=== PATIENT | male | born 1950 ===

== ENCOUNTER 2020-03-14 16:21 | Outpatient (REF) | payer MEDICARE, OTHER, SELFPAY ==
[2020-03-15 14:58] LABS: COVID-19 RT-PCR Result NEGATIVE (Negative)
== END 2020-03-14 16:41 ==
LOC: NCHCN 16:21
PROVIDERS: Visit Provider Nurse Practitioner Family
DX: Z20.828 Contact with and (suspected) exposure to other viral communicable diseases (principal)
CPT/HCPCS: U0003

== ENCOUNTER 2020-07-26 08:49 | Outpatient (REF) | payer MEDICARE, OTHER, SELFPAY ==
[2020-07-26 20:59] LABS: HCT 42.5 % (40.0-50.0); HGB 14.3 g/dL (13.5-17.5); MCH 33.6 pg (27.0-33.0); MCHC 33.6 % (32.0-36.0); MCV 99.8 fL (80-95); Platelet Count 166 10^3/uL (130-400); RBC 4.26 10^6/uL (4.36-5.78); RDW 13.1 % (11.8-14.1); RDW-SD 48.3 fL; WBC 5.27 10^3/uL (4.4-10.8)
[2020-07-26 21:20] LABS: ALT 39 U/L (16-63); AST 31 U/L (15-37); Alkaline Phosphatase 62 U/L (46-116); Anion Gap 4.5 mmol/L (3-11); BUN 15 mg/dL (7-18); Bilirubin, Total 0.9 mg/dL (0.2-1.0); CO2 31.5 mmol/L (21.0-32.0); CREATININE 0.96 mg/dL (0.70-1.30); Calcium 9.2 mg/dL (8.5-10.1); Calculated LDL 79 mg/dL (<100); Chloride 104 mmol/L (98-107); Cholesterol 166 mg/dL (<200); Glucose 93 mg/dL (74-106); HDL Cholesterol 66 mg/dL (40-60); Potassium 4.3 mmol/L (3.5-5.1); Sodium 140 mmol/L (136-145); TSH 3.04 uIU/mL (0.36-3.74); Triglyceride 106 mg/dL (<150)
[2020-07-26 22:28] LABS: FREE T4 0.97 ng/dL (0.76-1.46)
[2020-07-27 22:00] LABS: PSA, Screening 0.5 ng/mL (0.0-6.5)
== END 2020-07-26 09:09 ==
LOC: NCHCN 08:49
PROVIDERS: Visit Provider Nurse Practitioner Family
DX: E03.9 Hypothyroidism, unspecified (principal); E78.5 Hyperlipidemia, unspecified; I82.90 Acute embolism and thrombosis of unspecified vein; Z12.5 Encounter for screening for malignant neoplasm of prostate; Z80.42 Family history of malignant neoplasm of prostate
CPT/HCPCS: 80053; 80061; 84153; 85027; 84439; 84443

== ENCOUNTER 2020-10-02 14:32 | Emergency (ER) | payer MEDICARE, OTHER, SELFPAY ==
[2020-10-02] VITALS (22 sets, daily range): BP systolic 114–145; BP diastolic 63–88; PULSE 66–89; RESP 8–26; TEMP 36.6; O2SAT 89–97
--- NOTE | 2020-10-02 14:30 | RT.EKG_ITS ---
APPROVED REPORT Exam: Resting ECG Patient Location: E HR:78 bpm ECG Measurements Heart Rate 78 AXIS AK 164 P 52 QRSd 109 QRS -21 QT 383 T -14 QTc 436 Conclusion Sinus rhythm...normal P axis, V-rate 60- 99 Low voltage, precordial leads...precordial leads <1.0mV I have reviewed and interpreted ECG and agree with software generated interpretation.
--- NOTE | 2020-10-02 14:34 | ED.GENADUL_ITS ---
Discharge Plan Disposition Patient Disposition: HOME Condition: Good Discharge Details Clinical Impression: Mild shortness of breath, Hypoxia Primary Care Provider: Oralia Beaulieu ED Provider: Ellie West Home Meds and New Rx's Prescriptions: Continued Eliquis 5 mg Tablet 5 mg PO BID RF: 0 levothyroxine 50 mcg Tablet 50 mcg PO DAILY RF: 0 atorvastatin 10 mg Tablet 10 mg PO DAILY RF: 0 aspirin 81 mg Tablet 81 mg PO DAILY RF: 0 Discharge Instructions Instructions: Dyspnea (ED) Additional Instructions: Drink plenty of fluids and get plenty of rest. Call your primary care doctor tomorrow to schedule a follow-up appointment for reevaluation and for referral for outpatient stress test, outpatient echocardiogram and/or outpatient pulmonary function testing if your symptoms persist or worsen. Return immediately to the emergency department if you develop any worsening or new concerning symptoms. Discharge Data Discharge Date/Time-TO BE ENTERED AT DEPARTURE: 10/02/20 18:00 Discharge Physician: Ellie West Medical Decision Making 70-year-old male with a history of hyperlipidemia, hypothyroidism and pulmonary embolism on lifelong Eliquis who presents for shortness of breath for the past week and concern for possible PE versus CHF at the urgent care and referred here for further evaluation. Oxygen saturation 93 to 94% on room air on arrival. Remainder vitals within normal limits. He has no acute complaints at this time. He states that ambulation actually improved the shortness of breath. EKG notes a rate of 78, sinus without acute ST-T wave ischemic changes. His lungs are clear bilaterally. Labs and imaging reviewed and unremarkable. Troponin negative. BNP negative. CT negative. Patient was ambulated and his oxygen saturation was 96% on room air and he had no acute complaints. He had a Covid swab obtained at urgent care today. Patient is requesting to go home. Advised to follow up with the primary care claudia mcintyre for re-evaluation. Usual and customary return precautions given prior to discharge. Medical Records Medical records reviewed: Yes I reviewed the patient's medical records. Imaging Data Radiologic Study: Radiologist's impression: CT Angiography Chest With Contrast Exam date and time: 10/02/2020 4:01 PM Age: 70 years old Clinical indication: Other: Shortness of breath, hypoxia, R/O pe; Patient HX: HX of pe in 2018 TECHNIQUE: Imaging protocol: Computed tomographic angiography of the chest with intravenous contrast. 3D rendering (Not supervised by radiologist): MIP and/or 3D reconstructed images were created by the technologist. Contrast material: OMNIPAQUE 350; Contrast volume: 100 ml; Contrast route: INTRAVENOUS (IV); COMPARISON: No relevant prior studies available. FINDINGS: Pulmonary arteries: Normal. No pulmonary emboli. Aorta: Unremarkable. No aortic aneurysm. No aortic dissection. Lungs: Unremarkable. No consolidation. No masses. Pleural space: Unremarkable. No pneumothorax. No pleural effusion. Heart: Unremarkable. No cardiomegaly. No pericardial effusion. Lymph nodes: Unremarkable. No enlarged lymph nodes. Bones/joints: Unremarkable. No acute fracture. Soft tissues: Unremarkable. IMPRESSION: No acute findings. Lab Data Lab results reviewed: Yes I reviewed the patient's lab results. Labs: Laboratory Tests Range/Units 10/02/20 10/02/20 10/02/20 15:00 15:00 15:00 WBC (4.4-10.8) 10^3/uL 7.97 RBC (4.36-5.78) 10^6/uL 4.39 Hgb (13.5-17.5) g/dL 14.8 Hct (40.0-50.0) % 43.0 MCV (80-95) fL 97.9 H MCH (27.0-33.0) pg 33.7 H MCHC (32.0-36.0) % 34.4 RDW (11.8-14.1) % 12.6 Plt Count (130-400) 10^3/uL 164 MPV (8.0-11.0) fL 10.2 Immature Gran % 0.1 Neutrophils % 44.1 Lymphocytes % 41.5 Monocytes % 7.9 Eosinophils % 5.8 Basophils % 0.6 Nucleated RBC % % 0 Absolute Neutrophils (1.2-6.7) 10^3/uL 3.51 Absolute Lymphocytes (1.2-3.4) 10^3/uL 3.31 Absolute Monocytes (0.1-0.8) 10^3/uL 0.63 Absolute Eosinophils (0.0-0.7) 10^3/uL 0.46 Absolute Basophils (0.0-0.2) 10^3/uL 0.05 PT (9.3-11.0) sec 10.2 INR (0.9-1.1) 1.0 APTT (21.0-27.5) sec 25.4 Sodium (136-145) mmol/L 138 Potassium (3.5-5.1) mmol/L 3.8 Chloride (98-107) mmol/L 104 Carbon Dioxide (21.0-32.0) mmol/L 26.6 Anion Gap (3-11) mmol/L 7.4 BUN (7-18) mg/dL 14 Creatinine (0.70-1.30) mg/dL 0.97 Estimated GFR/1.73 m2 (mL/min/1.73m2) >= 60.00 Glucose (74-106) mg/dL 112 H Calcium (8.5-10.1) mg/dL 9.1 Magnesium (1.8-2.4) mg/dL 2.3 Total Bilirubin (0.2-1.0) mg/dL 0.6 AST (15-37) U/L 32 ALT (16-63) U/L 45 Alkaline Phosphatase (46-116) U/L 71 Troponin I (<0.06) ng/mL < 0.05 NT-Pro-B Natriuret Pep (<300) pg/mL Total Protein (6.4-8.2) g/dL 7.4 Albumin (3.4-5.0) g/dL 4.0 Range/Units 10/02/20 15:00 WBC (4.4-10.8) 10^3/uL RBC (4.36-5.78) 10^6/uL Hgb (13.5-17.5) g/dL Hct (40.0-50.0) % MCV (80-95) fL MCH (27.0-33.0) pg MCHC (32.0-36.0) % RDW (11.8-14.1) % Plt Count (130-400) 10^3/uL MPV (8.0-11.0) fL Immature Gran % Neutrophils % Lymphocytes % Monocytes % Eosinophils % Basophils % Nucleated RBC % % Absolute Neutrophils (1.2-6.7) 10^3/uL Absolute Lymphocytes (1.2-3.4) 10^3/uL Absolute Monocytes (0.1-0.8) 10^3/uL Absolute Eosinophils (0.0-0.7) 10^3/uL Absolute Basophils (0.0-0.2) 10^3/uL PT (9.3-11.0) sec INR (0.9-1.1) APTT (21.0-27.5) sec Sodium (136-145) mmol/L Potassium (3.5-5.1) mmol/L Chloride (98-107) mmol/L Carbon Dioxide (21.0-32.0) mmol/L Anion Gap (3-11) mmol/L BUN (7-18) mg/dL Creatinine (0.70-1.30) mg/dL Estimated GFR/1.73 m2 (mL/min/1.73m2) Glucose (74-106) mg/dL Calcium (8.5-10.1) mg/dL Magnesium (1.8-2.4) mg/dL Total Bilirubin (0.2-1.0) mg/dL AST (15-37) U/L ALT (16-63) U/L Alkaline Phosphatase (46-116) U/L Troponin I (<0.06) ng/mL NT-Pro-B Natriuret Pep (<300) pg/mL 72 Total Protein (6.4-8.2) g/dL Albumin (3.4-5.0) g/dL ECG Data Attestation: I personally reviewed and interpreted this ECG (s) as follows: Interpretation: Rate of 78, sinus, no acute ST elevation or depression, MS 164. QRS 103 QTc 436. HPI General Mode of arrival: ambulatory . Date/Time Provider Initiated Documentation: 10/02/20 14:33 . Limitations to Documentation: no limitations . Information obtained by: patient . HPI Narrative: Patient is a 70-year-old male with a history of pulmonary embolism on Eliquis for the past 3 years, hypothyroidism and hyperlipidemia who presents with shortness of breath for the past week. Patient states that shortness of breath is occasionally worse with movement. Patient denies any shortness of breath at present. Patient was seen at [facility] with his symptoms and they found that he had an abnormal looking EKG and concern for fluid in his lungs and was referred here for further evaluation. Patient denies any fever, cough, chest pain, nausea, vomiting, diarrhea, recent travel, recent known exposure to coronavirus, leg pain or swelling. Related Data Home Medications Medication Instructions Recorded Confirmed Eliquis 5 mg PO BID 10/02/20 10/02/20 aspirin 81 mg PO DAILY 10/02/20 10/02/20 atorvastatin 10 mg PO DAILY 10/02/20 10/02/20 levothyroxine 50 mcg PO DAILY 10/02/20 10/02/20 Allergies Allergy/AdvReac Type Severity Reaction Status Date / Time No Known Drug Allergies Allergy Unverified 10/02/20 14:54 Review of Systems All systems reviewed & are unremarkable except as noted in HPI and below Constitutional Constitutional: Reports as per HPI, Denies chills and Denies fever(s) Eyes Eyes: Denies blurry vision ENT Ears, Nose, Mouth, and Throat: Denies dizziness, Denies sore throat and Denies throat swelling Cardiovascular Cardiovascular: Denies chest pain and Reports dyspnea Respiratory Respiratory: Denies cough and Reports dyspnea Gastrointestinal Gastrointestinal: Denies abdominal pain, Denies diarrhea and Denies vomiting Genitourinary Genitourinary: Denies hematuria and Denies dysuria Musculoskeletal Musculoskeletal: Denies back pain and Denies numbness Integumentary/Breasts Skin/Breast: Denies lesions and Denies rash Neurologic Neurologic: Denies dizziness, Denies localized weakness and Denies numbness Allergic/Immunologic Allergic/Immunologic: Denies throat swelling PFS Medical History (Updated 10/02/20 @ 17:38 by Ellie West DO) Hx of hyperlipidemia Hypothyroidism Pulmonary embolism Surgical History (Updated 10/02/20 @ 16:48 by Ellie West DO) History of arthroscopy of right knee History of left knee surgery History of tonsillectomy Social History Smoking/Tobacco Use Status: Never Smoking risk assessment performed?: Yes Alcohol Intake: former Substance use type: does not use Do you feel safe at home: Yes Do you feel safe in your relationship?: Yes Exam Const General: cooperative, healthy appearing and anxious Orientation: alert, awake and oriented x3 HENMT Head: normal to inspection Face and sinus: normal facial exam Eyes General: appearance normal, both eyes and all related structures EOM: EOM intact bilaterally Neck Neck: normal visual inspection and No submandibular swelling Lymphatic: no lymphadenopathy noted Chest Chest: normal inspection of the chest and no tenderness Resp Effort & Inspection: normal respiratory effort and able to speak in complete sentences Auscultation: clear to auscultation bilaterally Cardio Rate: regular rate Rhythm: regular rhythm GI Inspection: normal to inspection Palpation: soft, not firm, not rigid and nontender Auscultation: normal bowel sounds Skin General skin exam: no rashes or lesions noted Neuro General: patient alert, patient awake and patient oriented x3 Cognition: normal cognition Speech: speech normal Motor: muscle tone normal throughout Sensory Exam: no sensory deficits noted Extrem General: normal to inspection, full ROM, capillary refill normal, no calf tenderness bilaterally and no edema Psych Appearance: grossly normal Mental Status: mental status grossly normal Speech and Movement: speech and movement normal Affect: normal affect
[2020-10-02 15:09] LABS: Abs Immature Grans 0.01 10^3/uL (0.0-0.06); Absolute Basophil Count 0.05 10^3/uL (0.0-0.2); Absolute Eosinophil Count 0.46 10^3/uL (0.0-0.7); Absolute Lymphocyte Count 3.31 10^3/uL (1.2-3.4); Absolute Monocyte Count 0.63 10^3/uL (0.1-0.8); Absolute Neutrophil Count 3.51 10^3/uL (1.2-6.7); Basophils % 0.6; Eosinophils % 5.8; HGB 14.8 g/dL (13.5-17.5); Immature Grans % 0.1; Lymphocytes % 41.5; MCH 33.7 pg (27.0-33.0); MCHC 34.4 % (32.0-36.0); MCV 97.9 fL (80-95); MPV 10.2 fL (8.0-11.0); Monocytes % 7.9; Neutrophils % 44.1; Nucleated RBC 0 %; Platelet Count 164 10^3/uL (130-400); RBC 4.39 10^6/uL (4.36-5.78); RDW 12.6 % (11.8-14.1); RDW-SD 45.1 fL; WBC 7.97 10^3/uL (4.4-10.8)
[2020-10-02 15:25] LABS: PTT Activated 25.4 sec (21.0-27.5); Prothrombin Time 10.2 sec (9.3-11.0)
[2020-10-02 15:29] LABS: ALT 45 U/L (16-63); AST 32 U/L (15-37); Alkaline Phosphatase 71 U/L (46-116); Anion Gap 7.4 mmol/L (3-11); BUN 14 mg/dL (7-18); Bilirubin, Total 0.6 mg/dL (0.2-1.0); CO2 26.6 mmol/L (21.0-32.0); CREATININE 0.97 mg/dL (0.70-1.30); Calcium 9.1 mg/dL (8.5-10.1); Chloride 104 mmol/L (98-107); Glucose 112 mg/dL (74-106); Magnesium 2.3 mg/dL (1.8-2.4); Potassium 3.8 mmol/L (3.5-5.1); Sodium 138 mmol/L (136-145); Total Protein 7.4 g/dL (6.4-8.2)
[2020-10-02 15:30] LABS: Troponin I < 0.05 ng/mL (<0.06)
--- NOTE | 2020-10-02 15:30 | DI.CT_ITS ---
EXAM: CT CHEST PE CTA CLINICAL HISTORY: shortness of breath, hypoxia, r/o pe. TECHNIQUE: Imaging Protocol: Axial CT angiography was performed with multi-slice acquisition and mu lti-planar and/or 3D reconstructions. CONTRAST MATERIAL: Intravenous: Omnipaque 350 Contrast volume:100 cc injected a 4.5 cc/second COMPARISON: No exams were available for comparison FINDINGS: Pulmonary Arteries: No evidence of filling defect to suggest pulmonary emboli. Lungs: No evidence of pulmonary infarction nor pleural effusions. No significant infiltrates. Trach ea and mainstem bronchi appear unremarkable. Mediastinum: No significant adenopathy. No hilar nor mediastinal adenopathy. Visualized thyroid unr emarkable. Cardiac: Heart size upper normal. No pericardial effusion. No significant shift of the interventric ular septum. Thoracic aorta unremarkable. Osseous: No significant findings IMPRESSION: No evidence of pulmonary embolism, pulmonary infarction nor pleural effusion.. RADIATION DOSE DELIVERED: 384.99mGy.cm Total DLP DATA REPOSITORY: All CT scans at this facility are submitted to the National Radiology Data Registry (NRDR) Dose Index Registry (DIR) with the [employer] (A[employer]). RADIATION OPTIMIZATION: All CT scans at this facility use at least one of these dose optimization te chniques: automated exposure control; mA and/or kV adjustment per patient size (includes targeted exa ms where dose is matched to clinical indication); or iterative reconstruction.
[2020-10-02] MEDS: Normal Saline - Diluent 50 ML VIAL IV (15:53)
[2020-10-02] MEDS: Omnipaque 350 MG/ML 100 ML BTL IJ (15:53)
[2020-10-02] MEDS: Normal Saline Flush 10 ML SYR IVP (15:55)
[2020-10-02 16:18] LABS: NT-proBNP 72 pg/mL (<300)
[2020-10-02] MEDS: Normal Saline 250 ML IV (16:23)
--- NOTE | 2020-10-02 16:32 | DI.VRAD_ITS ---
PROCEDURE INFORMATION: Exam: CT Angiography Chest With Contrast Exam date and time: 10/02/2020 4:01 PM Age: 70 years old Clinical indication: Other: Shortness of breath, hypoxia, R/O pe; Patient HX: HX of pe in 2018 TECHNIQUE: Imaging protocol: Computed tomographic angiography of the chest with intravenous contrast. 3D rendering (Not supervised by radiologist): MIP and/or 3D reconstructed images were created by the technologist. Contrast material: OMNIPAQUE 350; Contrast volume: 100 ml; Contrast route: INTRAVENOUS (IV); COMPARISON: No relevant prior studies available. FINDINGS: Pulmonary arteries: Normal. No pulmonary emboli. Aorta: Unremarkable. No aortic aneurysm. No aortic dissection. Lungs: Unremarkable. No consolidation. No masses. Pleural space: Unremarkable. No pneumothorax. No pleural effusion. Heart: Unremarkable. No cardiomegaly. No pericardial effusion. Lymph nodes: Unremarkable. No enlarged lymph nodes. Bones/joints: Unremarkable. No acute fracture. Soft tissues: Unremarkable. IMPRESSION: No acute findings. Dictated and Authenticated by: Belkis Watkins MD. Ordering:CAROL Argueta MD
--- NOTE | 2020-10-02 17:52 | NUR.NOTE ---
Jamaal,EMT Walked patient per MD order. Patient throughout excercise remained AXO, Denied any CP,SOB,Lightheadedness or dizziness. Patient remianed Saturating around 95-96% on RA with a pulse of 88-89bpm. Patient stated he felt better when he walked. END JAJA,EMT
== END 2020-10-02 18:00 | disposition home or self-care (01) ==
PROVIDERS: Emergency Provider Physician Assistant; PCP Family Medicine
DX: R09.02 Hypoxemia (principal); R06.02 Shortness of breath; Z86.711 Personal history of pulmonary embolism; Z79.01 Long term (current) use of anticoagulants
CPT/HCPCS: 36415; 71275; 80053; 93005; 96360; 99285; 83735; 83880; 84484; 85025; 85610; 85730; 93010; J3490

== ENCOUNTER 2020-10-02 20:54 | Outpatient (REF) | payer MEDICARE, OTHER, SELFPAY ==
[2020-10-04 19:17] LABS: SARS-CoV-2 RNA Undetected (Undetected); SARS-CoV-2 Specimen Source Nasal
== END 2020-10-02 21:14 ==
LOC: NCHCN 20:54
PROVIDERS: PCP Family Medicine; Visit Provider Nurse Practitioner Family
DX: R06.02 Shortness of breath (principal)
CPT/HCPCS: U0003